=== PATIENT | male | born 1965 ===

== ENCOUNTER 2024-06-27 06:22 | Day surgery (SDC) | payer BC ==
[2024-06-27] MEDS ORDERED: Lidocaine 2% 20 ML MDV NERVRT ONE (06:23)
[2024-06-27] MEDS ORDERED: Propofol 200 MG/20 ML SDV IV ONE (06:23)
[2024-06-27] MEDS ORDERED: Lactated Ringers 500 ML IV ONE (06:23)
[2024-06-27] MEDS ORDERED: Glycopyrrolate 0.2 MG/ML 2 ML SDV IV ONE (06:23)
[2024-06-27] MEDS: Lactated Ringers 1,000 ML IV SCH (06:45)
== END 2024-06-27 08:30 | disposition home or self-care (01) ==
LOC: DL.ENDO 06:22
PROVIDERS: ATTEND Internal Medicine Gastroenterology
DX: Z12.11 Encounter for screening for malignant neoplasm of colon (principal)
CPT/HCPCS: 45378; J2003; J2704; J3490; J7120; 00812